=== PATIENT | female | born 1975 | race Caucasian/White ===

== ENCOUNTER 2020-01-26 12:28 | Emergency (ER) | payer MEDICAID, SELFPAY ==
[~2020-01-26] VITALS: Ht 165.1 cm; Wt 68.9 kg
[2020-01-26 12:46] VITALS: BP_SYST 129
[2020-01-26 17:02] VITALS: BP_SYST 129
== END 2020-01-26 17:03 | disposition home or self-care (01) ==
LOC: SED 12:28
DX: B34.9 Viral infection, unspecified (principal); R43.0 Anosmia; Z88.1 Allergy status to other antibiotic agents; Z88.8 Allergy status to other drugs, medicaments and biological substances; Z20.828 Contact with and (suspected) exposure to other viral communicable diseases
CPT/HCPCS: 71045; 99284; U0003

== ENCOUNTER → 2021-10-08 | Emergency (ER) | payer MEDICAID ==
[~2021-10-08] VITALS: Ht 160 cm; Wt 65.8 kg
[~2021-10-08] MED LIST: HYDR-3917 PO; IBUP-1969 PO; KETOROLAC TROMETHAMINE 60 MG/2 ML VIAL IM ONE
[2021-10-08 17:29] VITALS: BP_SYST 127
[2021-10-08 20:27] VITALS: BP_SYST 129
--- NOTE | 2021-10-08 20:28 | NUR ---
Patient given written and verbal discharge instructions and verbalizes understanding. ER MD Nixon discussed with patient the results and treatment provided. Patient in stable condition. ID arm band removed. Rx sent to preferred pharmacy. Patient educated on pain management and to follow up with PMD. Pain Scale 2/10 Opportunity for questions provided and answered. Medication side effect fact sheet provided.
== END | disposition home or self-care (01) ==
LOC: SED 17:20
DX: M54.30 Sciatica, unspecified side (principal); M54.50 Low back pain, unspecified; M79.662 Pain in left lower leg; M79.661 Pain in right lower leg; Z88.1 Allergy status to other antibiotic agents; Z79.899 Other long term (current) drug therapy
CPT/HCPCS: 99283; 72100; 81002; 81025; 96372; J1885